=== PATIENT | male | born 1960 | race Caucasian/White ===

== ENCOUNTER 2023-08-20 15:48 | Inpatient (IN) | payer BC, OTHER ==
[~2023-08-20] VITALS: Ht 162.6 cm; Wt 62.1 kg
[2023-08-20] MEDS ORDERED: MORPHINE SULFATE INJ 4 MG/ML DISP.SYRIN ONE (16:07)
[2023-08-20 16:30] LABS: BASOPHILS % (AUTO) 0.7 % (0.0-2.0); EOSINOPHILS # (AUTO) 0.1 K/uL (0.0-0.7); HEMATOCRIT 42 % (39-51); HEMOGLOBIN 14.1 g/dL (13.5-17.5); LYMPHOCYTES # (AUTO) 1.1 K/uL (0.8-4.8); LYMPHOCYTES % (AUTO) 17.2 % (20.0-44.0); MEAN CORPUSCULAR HEMOGLOBIN 29 PG (26.0-33.0); MEAN CORPUSCULAR HGB CONC 33 g/dl (31.0-36.0); MEAN CORPUSCULAR VOLUME 86 fL (80-96); MONOCYTES # (AUTO) 0.6 K/uL (0.1-1.30); MONOCYTES % (AUTO) 8.6 % (2.0-12.0); NEUTROPHILS # (AUTO) 4.6 K/uL (1.8-8.9); NEUTROPHILS % (AUTO) 71.5 % (43.0-81.0); PLATELET COUNT (AUTO) 219 K/uL (150-450); RED BLOOD CELL COUNT(AUTO) 4.94 MIL/uL (4.5-6.0); RED CELL DISTRIBUTION WIDTH 13.7 % (11.5-15.0); WHITE BLOOD COUNT (AUTO) 6.5 K/uL (4.3-11.0)
[2023-08-20] MEDS: CEFAZOLIN 1 GM in IV D5W 50 ML IV ONE (16:34)
[2023-08-20 16:37] LABS: CALCIUM, SERUM 8.7 mg/dL (8.5-10.1); CREATININE 0.7 mg/dL (0.6-1.3)
[2023-08-20] MEDS: MORPHINE SULFATE INJ 2 MG/ML DISP.SYRIN IV ONE (16:49)
[2023-08-20] MEDS: CLINDAMYCIN 900 MG in IV D5W 50 ML IV ONE (16:54)
[2023-08-20] MEDS: CLINDAMYCIN IV RTU IN D5W 900 MG/50 ML PIGGYBACK IV ONE (16:57)
[2023-08-20] MEDS ORDERED: MULT-213 PO (17:04)
[2023-08-20] MEDS ORDERED: ROSU10TA29 PO (17:04)
[2023-08-20] MEDS ORDERED: ALEN70TA80 PO (17:04)
[2023-08-20] MEDS ORDERED: VITAMIN K2 PO (17:04)
[2023-08-20] MEDS ORDERED: CALCIUM PO (17:04)
[2023-08-20] MEDS ORDERED: VITAMIN C PO (17:04)
[2023-08-20] MEDS ORDERED: VITAMIN D3 PO (17:04)
[2023-08-20] MEDS ORDERED: FLUT1BLS14 INH (17:04)
[2023-08-20] MEDS ORDERED: VITA1TAB56 PO (17:04)
[2023-08-20 17:10] LABS: PARTIAL THROMBOPLASTIN TIME 21.7 SEC (24.3-34.3); PROTHROMBIN TIME 10.6 SECS (9.2-11.1)
[2023-08-20] MEDS ORDERED: HYDROMORPHONE 1 MG/1 ML DISP.SYRIN ONE (17:46)
[2023-08-20] MEDS: HYDROMORPHONE 1 MG/1 ML DISP.SYRIN IV ONE ×2 (17:52→18:56)
[2023-08-20 22:02] VITALS: BP 143/87; TEMP 98.4; O2SAT 98
[2023-08-20] MEDS ORDERED: Z GUARD REMEDY 4 OZ OINT TP PRN (22:30)
[2023-08-20] MEDS ORDERED: ZOLPIDEM TARTRATE 5 MG TABLET PO PRN (22:30)
[2023-08-20] MEDS ORDERED: ACETAMINOPHEN 325 MG TABLET PO PRN (22:30)
[2023-08-20] MEDS ORDERED: MAG HYDROX/AL HYDROX/SIMETH 30 ML UDC PO PRN (22:30)
[2023-08-20] MEDS ORDERED: ONDANSETRON HCL/PF 4 MG/2 ML VIAL IVP PRN (22:30)
[2023-08-20] MEDS ORDERED: HYDROCODONE/APAP 10/325MG TABLET PO PRN (22:30)
[2023-08-20] MEDS ORDERED: MAGNESIUM HYDROXIDE 30 ML UDC PO PRN (22:30)
[2023-08-20] MEDS: MORPHINE SULFATE INJ 2 MG/ML DISP.SYRIN IV PRN (22:44)
[2023-08-20] MEDS: IV D5/0.45 NACL 1,000 ML IV PRN (23:34)
[2023-08-21] VITALS (15 sets, daily range): BP systolic 98–115; BP diastolic 56–69; TEMP 98–98.4; O2SAT 94–98
[2023-08-21] MEDS ORDERED: *INSULIN REGULAR(HUMULIN R)HUM 100 UNIT/ML VIAL SQ PRN (01:00)
[2023-08-21] MEDS ORDERED: INSULIN REGULAR, HUMAN 100 UNIT/ML 3 ML VIAL SQ PRN (01:00)
[2023-08-21] MEDS ORDERED: DEXTROSE 50%-WATER 50 ML DISP.SYRIN IV PRN (01:00)
[2023-08-21] MEDS ORDERED: CLINDAMYCIN 900 MG/6 ML VIAL ONE (04:24)
[2023-08-21] MEDS ORDERED: CEFAZOLIN 1 GM ONE (04:24)
[2023-08-21] MEDS: CEFAZOLIN 1 GM in IV D5W 50 ML IV SCH (04:37)
[2023-08-21] MEDS ORDERED: CLINDAMYCIN IV RTU IN D5W 900 MG/50 ML PIGGYBACK IV SCH (05:00)
[2023-08-21] MEDS: CLINDAMYCIN 900 MG in IV D5W 50 ML IV SCH (05:11)
[2023-08-21] MEDS ORDERED: FENTANYL PF 100MCG/2ML AMPUL ONE (06:25)
[2023-08-21] MEDS ORDERED: MIDAZOLAM HCL 2 MG/2ML VIAL ONE (06:26)
[2023-08-21] MEDS ORDERED: BUPIVACAINE 0.5 % PF 150 MG/30 ML VIAL ONE (06:26)
[2023-08-21] MEDS ORDERED: VANCOMYCIN 1 GM VIAL ONE ×2 (06:26→10:05)
[2023-08-21] MEDS: BLOOD SUGAR DIAGNOSTIC 1 EACH STRIP VI SCH (06:39)
[2023-08-21 06:58] LABS: BASOPHILS % (AUTO) 0.5 % (0.0-2.0); EOSINOPHILS # (AUTO) 0.1 K/uL (0.0-0.7); EOSINOPHILS % (AUTO) 1.2 % (0.0-6.0); HEMATOCRIT 39 % (39-51); HEMOGLOBIN 13.5 g/dL (13.5-17.5); MEAN CORPUSCULAR HEMOGLOBIN 29 PG (26.0-33.0); MEAN CORPUSCULAR HGB CONC 34 g/dl (31.0-36.0); MEAN CORPUSCULAR VOLUME 85 fL (80-96); MONOCYTES % (AUTO) 10.6 % (2.0-12.0); NEUTROPHILS # (AUTO) 7.3 K/uL (1.8-8.9); NEUTROPHILS % (AUTO) 76.7 % (43.0-81.0); PLATELET COUNT (AUTO) 206 K/uL (150-450); RED BLOOD CELL COUNT(AUTO) 4.62 MIL/uL (4.5-6.0); RED CELL DISTRIBUTION WIDTH 13.7 % (11.5-15.0); WHITE BLOOD COUNT (AUTO) 9.5 K/uL (4.3-11.0)
[2023-08-21 07:03] LABS: INR 1.03 (0.91-1.10); PARTIAL THROMBOPLASTIN TIME 24.5 SEC (24.3-34.3); PROTHROMBIN TIME 10.9 SECS (9.2-11.1)
[2023-08-21 07:04] LABS: CALCIUM, SERUM 8.2 mg/dL (8.5-10.1); CREATININE 0.6 mg/dL (0.6-1.3); PHOSPHORUS 3.7 mg/dL (2.5-4.9); POTASSIUM 3.6 mmol/L (3.5-5.1)
[2023-08-21 07:18] LABS: THYROID STIMULATING HORMONE 2.79 uIU/mL (0.358-3.74)
[2023-08-21] MEDS: PANTOPRAZOLE 40 MG VIAL IV SCH (08:30)
[2023-08-21] MEDS ORDERED: HYDROMORPHONE 1 MG/1 ML DISP.SYRIN ONE (11:10)
[2023-08-21] MEDS ORDERED: CEFAZOLIN 1 GM in IV D5W 50 ML IV SCH (12:00)
[2023-08-21] MEDS ORDERED: ALBUTEROL FS 2.5 MG/3 ML VIAL.NEB NEB SCH (12:00)
[2023-08-21] MEDS ORDERED: FLUTICASONE/SALMETEROL 1 DISK IH SCH (12:00)
[2023-08-21] MEDS: VITAMIN B COMP W-C 1 TAB TABLET PO SCH (12:27)
[2023-08-21] MEDS: MULTIVITAMINS,THERAGRAN 1 UDTAB TABLET PO SCH (12:27)
[2023-08-21] MEDS: ALBUTEROL FS 2.5 MG/3 ML VIAL.NEB NEB SCH (13:40)
[2023-08-21] MEDS: IV D5/0.45 NACL W/20 MEQ KCL 1L IV PRN (14:17)
[2023-08-21] MEDS: BUDESONIDE RESPULE INH 0.5 MG/2 ML AMPUL.NEB NEB SCH (16:18)
[2023-08-21] MEDS ORDERED: BUDESONIDE RESPULE INH 0.5 MG/2 ML AMPUL.NEB NEB SCH (17:00)
[2023-08-21] MEDS: ATORVASTATIN 40 MG TABLET PO SCH (21:21)
[2023-08-22] MEDS ORDERED: IV PREMIX D5 1/2NS + KCL 1,000 ML IV ONE (05:07)
[2023-08-22] MEDS ORDERED: IV D5/0.45 NACL W/20 MEQ KCL 1L IV SCH ×2 (07:14→18:01)
[2023-08-22 07:43] VITALS: O2SAT 94
[2023-08-22 07:54] VITALS: O2SAT 96
[2023-08-22 08:11] VITALS: BP 110/62; TEMP 98.6; O2SAT 97
[2023-08-22 08:18] VITALS: O2SAT 94
[2023-08-22] MEDS: PANTOPRAZOLE 40 MG TABLET.DR PO SCH (08:26)
[2023-08-22 08:42] VITALS: O2SAT 93
[2023-08-22] MEDS ORDERED: HYDROCODONE/APAP 10/325MG TABLET PO PRN (09:00)
[2023-08-22] MEDS ORDERED: MORPHINE SULFATE INJ 4 MG/ML DISP.SYRIN IV PRN (09:00)
[2023-08-22 09:04] VITALS: O2SAT 93
[2023-08-22] MEDS ORDERED: CLIN300C12 PO ×2 (09:59→11:09)
[2023-08-22] MEDS ORDERED: ONDA4TAB5 PO ×2 (09:59→11:09)
[2023-08-22] MEDS ORDERED: HYDR-3972 PO ×2 (09:59→11:09)
[2023-08-22] MEDS ORDERED: CLINDAMYCIN 900 MG in IV D5W 50 ML IV SCH (13:00)
[2023-08-22] MEDS ORDERED: ALBUTEROL FS 2.5 MG/3 ML VIAL.NEB NEB SCH (13:30)
[2023-08-23] MEDS ORDERED: ALENDRONATE 70 MG TABLET PO SCH (09:00)
== END 2023-08-22 12:30 | disposition home or self-care (01) | DRG 512 ==
LOC: ER 15:50 → MED 19:35
PROVIDERS: ADMIT Student in an Organized Health Care Education/Training Program; ATTEND Nurse Practitioner Acute Care
PROC: 0PSJ04Z Reposition Left Radius with Internal Fixation Device, Open Approach (ICD-10-PCS; principal; 2023-08-21)
PROC: 0PSL0ZZ Reposition Left Ulna, Open Approach (ICD-10-PCS; 2023-08-21)
PROC: BW1JYZZ Fluoroscopy of Upper Extremity using Other Contrast (ICD-10-PCS; 2023-08-21)
DX: M80.832A Other osteoporosis with current pathological fracture, left forearm, initial encounter for fracture (principal); W19.XXXA Unspecified fall, initial encounter; Y93.9 Activity, unspecified; Y92.89 Other specified places as the place of occurrence of the external cause; R73.03 Prediabetes; E78.5 Hyperlipidemia, unspecified; I10 Essential (primary) hypertension; Z80.0 Family history of malignant neoplasm of digestive organs; S63.075A Dislocation of distal end of left ulna, initial encounter; Z88.0 Allergy status to penicillin
CPT/HCPCS: 36415; 71045-TC; 73110; 80048-TC; 80061-TC; 82962-TC; 83735-TC; 84100-TC; 84443-TC; 85025-TC; 85610-TC; 85730-TC; 86850-TC; 94799-TC; A4223; G0378; J0690; J1100; J1170; J1815; J1885; J2250; J2270; J2704; J3010; J3370; J3480; J3490; J7050; J7060